=== PATIENT | male | born 1960 | race American Indian/Alaskan Native ===

== ENCOUNTER 2019-06-14 10:21 | Emergency (ER) | payer OTHER ==
[2019-06-14 10:52] VITALS: BP 138/75
[2019-06-14] MEDS ORDERED: predniSONE 20 MG TAB PO ONE (13:24)
[2019-06-14] MEDS ORDERED: CYCLOBENZAPRINE 10 MG TAB PO ONE (13:24)
[2019-06-14] MEDS ORDERED: HYDROcodone/ACETAMINOPHEN 5-325 MG TAB PO ONE (13:24)
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
== END 2019-06-14 15:32 | disposition home or self-care (01) ==
LOC: ED 10:21
DX: M54.2 Cervicalgia (principal); M19.90 Unspecified osteoarthritis, unspecified site; I10 Essential (primary) hypertension; Z79.899 Other long term (current) drug therapy; V49.49XA Driver injured in collision with other motor vehicles in traffic accident, initial encounter; Y93.89 Activity, other specified; Y92.410 Unspecified street and highway as the place of occurrence of the external cause; Y99.8 Other external cause status
CPT/HCPCS: 72040; 99283; J7512